=== PATIENT | female | born 1935 | race Caucasian/White ===

== ENCOUNTER 2017-07-08 13:25 | Inpatient (IN) | payer MEDICARE, OTHER ==
[2017-07-08 14:31] LABS: #Eosinphils 0.1 thou/uL (0.0-0.7); #Lymphocytes 1.1 thou/uL (1.20-3.40); #Monocytes 0.7 thou/uL (0.11-0.59); #Neutrophils 17.7 thou/uL (1.40-6.50); %Basophils 0.2 % (0.0-1.0); %Eosinophils 0.3 % (0.0-10.0); %Lymphocytes 5.7 % (21.0-51.0); %Monocytes 3.7 % (0.0-10.0); Hematocrit 39.8 % (36.0-47.0); Mean Platelet Volume 8.6 fL (7.4-10.4); Red Blood Cell (RBC) Count 3.96 mill/uL (4.20-5.40); White Blood Cell (WBC) Count 19.6 thou/uL (4.8-10.8)
[2017-07-08 14:37] LABS: PTT 30.5 SEC (22.9-36.1); Prothrombin Time 16.1 SEC (12.0-14.7)
[2017-07-08] MEDS ORDERED: Fentanyl 100 MCG/2 ML VIAL ONE (14:40)
--- NOTE | 2017-07-08 14:53 | RAD ---
LEFT HIP TWO VIEWS: HISTORY: Fall. Left hip injury. FINDINGS: A comminuted, predominantly oblique fracture of the proximal femur extends from the base of the less er trochanter to the base of the greater trochanter. There is minimal medial displacement of the di stal fragment. IMPRESSION: Comminuted intertrochanteric fracture, left hip. POS: [facility]
[2017-07-08 14:54] LABS: ALT (SGPT) 17 U/L (8-55); AST (SGOT) 19 U/L (5-34); Alkaline Phosphatase 65 U/L (40-150); Anion Gap 14 mmol/L (10-20); BUN (Urea Nitrogen) 21 mg/dL (9.8-20.1); Bilirubin, Total 0.4 mg/dL (0.2-1.2); Calc. Creatinine Clearance 0 mL/min (70-130); Calcium 9.1 mg/dL (7.8-10.44); Carbon Dioxide 24 mmol/L (23-31); Chloride 108 mmol/L (98-107); Estimated GFR-MDRD 54; Globulin 2.2 g/dL (2.4-3.5)
--- NOTE | 2017-07-08 14:59 | RAD ---
AP PELVIS ONE VIEW: HISTORY: Fall. Hip injury. FINDINGS: A comminuted intertrochanteric left hip fracture is again demonstrated. Degenerative changes of eac h hip and lumbar spine are apparent. There is articulation of each L5 transverse process with the r espective side of iliac bone. The sacral ala and pelvic rings are intact. Radiopaque sutures overl y the right lower quadrant. Calcification over the midline pelvis has the appearance of uterine fib roids. IMPRESSION: Left hip fracture. POS: [facility]
--- NOTE | 2017-07-08 15:02 | RAD ---
LEFT FEMUR TWO VIEWS: HISTORY: Fall. Left leg injury. FINDINGS: A comminuted intertrochanteric fracture of the left hip is again demonstrated. The distal femur is intact. IMPRESSION: Left hip fracture. POS: [facility]
--- NOTE | 2017-07-08 15:03 | RAD ---
CHEST ONE VIEW: HISTORY: Chest pain. COMPARISON: 02/06/2012 FINDINGS: The cardiac silhouette is magnified by projection. The pulmonary vasculature is unremarkable. The lungs remain hyperinflated. The mediastinum is midline with aortic calcification. There is no loba r consolidation or evidence of pneumothorax. Metallic clips overly the left axilla. IMPRESSION: 1. Chronic obstructive pulmonary disease. 2. Atherosclerosis. POS: [facility]
[2017-07-08 15:25] LABS: Bilirubin Negative (Negative); Blood, Urine Small (Negative); Glucose, Urine (Dipstick) Negative (Negative); Ketone, Urine Trace mg/dL (Negative); Nitrite Negative (Negative); Protein, Urine (Dipstick) Negative (Neg-Trace); Urobilinogen 0.2 mg/dL (0.2-1.0)
[2017-07-08 15:27] LABS: Bacteria/HPF None Seen HPF (None Seen); Hyaline Casts/LPF 4-6 HYALINE CAST LPF (0-3 Hyaline); Squamous Epithelial 0-3 HPF (0-3); WBC/HPF 0-3 HPF (0-3)
[2017-07-08] MEDS ORDERED: HYDROcodone/Acetaminophen 10/325 mg Tablet PO PRN ×2 (16:42)
[2017-07-08] MEDS ORDERED: Ondansetron HCl/PF 4 MG/2 ML Vial IVP PRN (16:42)
[2017-07-08] MEDS ORDERED: Dextrose 50% Abboject 50 ML SYRINGE SLOW IVP PRN (16:42)
[2017-07-08] MEDS ORDERED: Dextrose 5% in Water 1,000 ML IV PRN (16:42)
[2017-07-08] MEDS ORDERED: Ondansetron ODT 4 MG TAB PO PRN (16:42)
[2017-07-08] MEDS: MORPHINE 10 MG/ML SYRINGE IV PRN ×2 (17:10→23:28)
[2017-07-08] MEDS: Sodium Chloride 0.9% 1,000 ML IV SCH ×2 (17:16→23:28)
--- NOTE | 2017-07-08 17:49 | HP ---
DATE OF ADMISSION: 07/08/2017 REQUESTING PHYSICIAN: Reinier Mosher M.D. ATTENDING SURGEON: Wilfred Finley DO CONSULTATIONS: Orthopedics, Gerardo Metzger M.D. HISTORY OF PRESENT ILLNESS: The patient is an 81-year-old woman who at home was going to leave her house to walk her dog when she tripped at the door and landed on her left hip. The patien t had immediate pain and discomfort, called 911, and was brought to the emergency department, remberto browning, examined and noted to have a left femoral neck fracture at which time we were asked to evaluate the patient for admission and obtain a surgical consultation with Orthopedics. ALLERGIES: DARVON, TALWIN. CURRENT MEDICATIONS: Atorvastatin, Eliquis, losartan, Citracal, multivitamin, and magnesium oxide. PAST MEDICAL HISTORY: Atrial fibrillation, hypertension, and breast cancer. PAST SURGICAL HISTORY: Bilateral mastectomy, , appendectomy, and tonsillectomy. SOCIAL HISTORY: The patient currently lives at home with her . She is a former smoker, mil ter than 10 years ago. Denies alcohol or drug use. REVIEW OF SYSTEMS: A ten-point review of systems was negative, unless otherwise stated. PHYSICAL EXAMINATION: VITAL SIGNS: Blood pressure 138/71, heart rate 70, respirations 16, temperature is 97.7, oxygen sat uration is 97% on room air. GENERAL: The patient is resting comfortably in the emergency room bed. She is alert and oriented x 3. [place] Coma Scale is 15. HEENT: Head is normocephalic and atraumatic. Eyes, extraocular motions are intact. PERRLA bilater ally. Ears are atraumatic without discharge. Nose is atraumatic without discharge. Oropharynx is clear. NECK: Nontender. Trachea is midline. No JVD. CHEST: Clear to auscultation with good inspiratory and expiratory effort. HEART: Regular rate and irregularly irregular, consistent with her atrial fibrillation. ABDOMEN: Soft, flat, and nontender. Pelvis is stable. The patient has tenderness to palpation to the left hip consistent with her fracture. EXTREMITIES: Neurovascularly intact x4. BACK: By report is atraumatic and nontender. LABORATORY FINDINGS: White blood cell count 19.6, hemoglobin 13.0, hematocrit 39.8, platelets 189. Sodium 142, potassium 4.1, chloride 108, CO2 of 24, BUN 21, creatinine 0.99, glucose 99. LFTs are unremarkable. PTT 31, PT 16, INR 1.3. Urinalysis is unremarkable with the exception of some trace blood. RADIOGRAPHS: AP chest shows chronic obstructive pulmonary disease and atherosclerosis, otherwise no acute findings. Left femur shows a left hip fracture. AP pelvis shows a left hip fracture. Two v iews of the left hip show a comminuted intertrochanteric fracture of the left hip. ASSESSMENT: 1. Status post ground level fall. 2. Left femoral neck fracture. 3. Atrial fibrillation. 4. Acute pain secondary to trauma. The plan will be to admit the patient to the surgical floor. Due to her Eliquis use, she will not b e eligible for surgery today. We will hold her evening dose and her morning dose. Make her n.p.o. after midnight, pulmonary toilet, pain control, gastritis, mechanical DVT prophylaxis with a plan fo r the patient to go to the operating room in the morning. The patient was evaluated in the emergenc y department with Dr. Finley. The radiographs and laboratory findings were all discussed with Dr. Prateek barcenas and Dr. Metzger all were in agreement with this plan. They were able to answer the patient's qu estions at this time also.
[2017-07-08 18:08] VITALS: BMI 23.8
[2017-07-08] MEDS: Famotidine/PF 20 mg/2ml Vial SLOW IVP SCH (19:58)
[2017-07-08] MEDS: Famotidine 20 MG TAB PO SCH (19:58)
--- NOTE | 2017-07-08 23:56 | CON ---
DATE OF CONSULTATION: 07/08/2017. HISTORY OF PRESENT ILLNESS: Ms. Lynn is an 81-year-old female who was at home. She was planning on leaving the house to take her dog for a walk. As she turned to close the door, tripped and fell directly onto her left hip, had immediate pain in the left hip area, was unable to ambulate, was bro ught to the emergency room by ambulance and x-rays showed a comminuted intertrochanteric fracture of the left hip. The patient reports no neurologic complaints. PAST MEDICAL HISTORY/MEDICAL ILLNESSES: Atrial fibrillation, hypertension, and history of breast ca ncer. CURRENT MEDICATIONS: Include Eliquis, atorvastatin, losartan, Citracal, multivitamins, magnesium ox lucero. ALLERGIES: DARVON and TALWIN. PAST SURGICAL HISTORY: Bilateral mastectomy, , appendectomy, and tonsillectomy. SOCIAL HISTORY: The patient lives at home with her . She did smoke but greater than 10 year s ago. She does not use tobacco now at all and does not use alcohol. PHYSICAL EXAMINATION: GENERAL: The patient is a very pleasant female, alert and oriented x3, cooperative with the examina tion. VITAL SIGNS: The patient is afebrile, blood pressure 138/71, pulse 70, respiratory rate 16, O2 satu ration 97% on room air. HEENT: Unremarkable for age. Cranial nerves II through XII are grossly intact. NECK: Good range of motion without pain. Thoracic and lumbar spine are nontender to palpation. LUNGS: Clear bilaterally. HEART: Slightly irregular rate. ABDOMEN: Soft, nontender, bowel sounds positive. GENITOURINARY: Not known. EXTREMITIES: Skin over the lateral aspect of the left hip and thigh is in good condition. The louisa ent is able to flex and extend toes and the left foot has good dorsiflexion and plantar flexion of h er left ankle. Good peripheral pulses. IMAGING STUDIES: X-rays of the left hip shows a comminuted intertrochanteric fracture of the left h ip. No significant arthritic signs in the hip joint. Chest x-ray shows signs of chronic obstructiv e pulmonary disease and atherosclerosis. IMPRESSION: 1. Comminuted intertrochanteric fracture of the left hip. 2. Atrial fibrillation. 3. Chronic obstructive pulmonary disease. 4. Hypertension. PLAN: The patient will require open reduction internal fixation of the left hip. Because of her at rial fibrillation, Cardiology will be consulted. The patient's Eliquis has been stopped. We will a lso get an idea from the gas turbine powerplant mechanic helper what would be the appropriate timing to do the surgery. Jhonny washburn risks with the condition of surgery include, but are not limited to infection, bleeding, pain, damage to blood vessels or nerves, nonunion, malunion, the patient may require additional surgery, D VT, and PE formation. The patient's questions were answered. If the patient is cleared, we can do the surgery as soon as tomorrow on Monday.
[2017-07-09 04:38] LABS: #Eosinphils 0.1 thou/uL (0.0-0.7); #Lymphocytes 1.5 thou/uL (1.20-3.40); #Monocytes 0.6 thou/uL (0.11-0.59); #Neutrophils 5.5 thou/uL (1.40-6.50); %Eosinophils 0.7 % (0.0-10.0); %Lymphocytes 19.5 % (21.0-51.0); %Monocytes 8.3 % (0.0-10.0); Hematocrit 32.3 % (36.0-47.0); Mean Platelet Volume 8.5 fL (7.4-10.4); Red Blood Cell (RBC) Count 3.24 mill/uL (4.20-5.40); White Blood Cell (WBC) Count 7.7 thou/uL (4.8-10.8)
[2017-07-09 04:45] LABS: Anion Gap 9 mmol/L (10-20); BUN (Urea Nitrogen) 18 mg/dL (9.8-20.1); Calc. Creatinine Clearance 56 mL/min (70-130); Carbon Dioxide 26 mmol/L (23-31); Chloride 109 mmol/L (98-107); Estimated GFR-MDRD 71
[2017-07-09] MEDS: Famotidine/PF 20 mg/2ml Vial SLOW IVP SCH ×2 (08:58→22:00)
[2017-07-09] MEDS: MORPHINE 10 MG/ML SYRINGE IV PRN ×3 (08:58→17:28)
[2017-07-09] MEDS: Sodium Chloride 0.9% 1,000 ML IV SCH ×3 (09:48→22:00)
[2017-07-09] MEDS: Famotidine 20 MG TAB PO SCH ×2 (09:48→22:00)
[2017-07-09] MEDS ORDERED: Dronedarone HCl 400 MG TAB PO SCH (17:00)
--- NOTE | 2017-07-09 21:33 | CON ---
DATE OF CONSULTATION: 07/09/2017 HISTORY OF PRESENT ILLNESS: The patient is a pleasant 81-year-old woman with a history of paroxysmal atrial fibrillation, who presented after having a fall and needs to undergo surgery. The patient has been admitted on 2 occasions with atrial fibrillation. She was last here in April with rapid atrial fibrillation. The patient has been on chronic anticoagulation therapy and Multaq. The patient is followed primarily by Dr. Patrick. The patient states has otherwise been in very good health. She is able to walk several blocks without any chest discomfort or dyspnea. The patient denies having any PND or orthopnea. PAST MEDICAL HISTORY: 1. Atrial fibrillation. 2. Hypertension. 3. Dyslipidemia. 4. Breast carcinoma. PAST SURGICAL HISTORY: Appendectomy, mastectomies, and tonsillectomy. SOCIAL HISTORY: Nonsmoker. FAMILY HISTORY: No strong family history of heart disease. ALLERGIES: DARVON and TALWIN. MEDICATIONS: Losartan 25 b.i.d., Multaq 400 twice a day, Eliquis 50 twice a day , and Lipitor 1 tablet at bedtime. REVIEW OF SYSTEMS: Ten-point system otherwise unremarkable. No history of easy bruising or bleeding, bright red blood per rectum, hematuria. PHYSICAL EXAMINATION: GENERAL: This is a well-developed woman, in no acute distress, alert and oriented x3. VITAL SIGNS: Blood pressure 131/60. NECK: Showed no jugular venous distention, no carotid bruits. LUNGS: Clear to auscultation. HEART: Regular rate and rhythm, normal S1, S2 with a 2/6 systolic murmur. ABDOMEN: Nondistended. EXTREMITIES: Showed no edema. SKIN: Warm and dry. NEUROLOGIC: Nonfocal. VASCULAR: Radial pulses are 2+. LABORATORY DATA: White blood cell count 7.7, hemoglobin 10.5, hematocrit 32.3, platelets 156. Her INR is 1.3. Sodium is 140, potassium 4.1, chloride 109, bicarbonate 26, BUN 18, creatinine is 0.78. Her EKG revealed her to have normal sinus rhythm with occasional PVCs. IMPRESSION: 1. Hip fracture. 2. History of atrial fibrillation. 3. Hypertension. 4. Dyslipidemia. This patient presents with a hip fracture. She needs to undergo surgery. She can perform several METS without difficulty. The patient has no history of angina or congestive heart failure. An echocardiogram will be obtained to evaluate her systolic murmur. She should be at low risk for cardiac complications for surgery. We will follow this patient with you through her hospitalization. [facility]
--- NOTE | 2017-07-09 21:35 | PRG ---
DATE OF SERVICE: 07/09/2017 SUBJECTIVE: Ms. Lynn had no particular problems overnight, comes in for a diagnosis of comminuted intertrochanteric fracture of the left hip. The patient has been on Eliquis for atrial fibrillatio n. So far at this time at 1:30 in the afternoon, she has not been evaluated by Cardiology. I did t alk with Anesthesia though and they felt to be the safest for the patient we should wait at least an other day to let the Eliquis get out of her system. I discussed this with the patient and she is fi ne with that recommendation, so we will hold off on performing surgery today. We will still need Ca rdiology consult to make sure that she is safe as possible to have her hip surgery. We will try to schedule the surgery for tomorrow. This will have plenty of time for the Eliquis to get out of her system and hopefully, we will have the recommendation from Cardiology at that point.
[2017-07-09] MEDS: Losartan 25 MG TAB PO SCH (22:00)
--- NOTE | 2017-07-10 01:08 | PRG ---
DATE OF SERVICE: 07/09/2017 SUBJECTIVE: The patient is hospital day #2 status post ground level fall in which she sustained a l eft intertrochanteric fracture. She was scheduled for a cardiac clearance today. , she will undergo surgical intervention tomorrow for her hip fracture by Dr. Metzger. Overnight, the patient stated that her pain was controlled and she was tolerating a diet this morning. OBJECTIVE: VITAL SIGNS: Temperature is 98.9, heart rate 67, blood pressure 131/69, respirations 16, oxygen sat uration is 97% on room air. GENERAL: The patient is resting comfortably in the hospital bed. She is alert and oriented x3. CHEST: Clear to auscultation bilaterally. HEART: Regular rate and rhythm. ABDOMEN: Soft, flat, and nontender. EXTREMITIES: She is neurovascularly intact x4. LABORATORY FINDINGS: White blood cell count 7.7, hemoglobin 10.5, hematocrit 32.3, platelet 156. S odium 140, potassium 4.1, chloride 109, CO2 of 26, BUN 18, creatinine 0.78, glucose 105. ASSESSMENT: 1. Status post ground level fall. 2. Left intertrochanteric fracture. 3. Acute pain secondary to trauma. 4. Rate controlled atrial fibrillation. PLAN: Continue pain control, pulmonary toilet, gastritis and mechanical thrombosis prophylaxis. e evaluation and examination were done on the surgical floor with Dr. Finley.
[2017-07-10] MEDS: MORPHINE 10 MG/ML SYRINGE IV PRN ×3 (08:08→22:10)
[2017-07-10] MEDS: Famotidine/PF 20 mg/2ml Vial SLOW IVP SCH ×2 (09:00→22:12)
--- NOTE | 2017-07-10 13:26 | PRG-2 ---
DATE OF SERVICE: 07/10/2017 ATTENDING PHYSICIAN: Dr. Wilfred Finley. SUBJECTIVE: This is an 81-year-old woman status post fall where she sustained a left comminuted int ertrochanteric fracture of the hip. The patient was cleared for surgery by Dr. Medrano. She is sc heduled for surgery today. Patient is tolerating pain with current pain medication regimen. She de nies any chest pain, nausea, vomiting, diarrhea this morning. The patient is alert and awake. GCS 15. OBJECTIVE: VITAL SIGNS: Temperature 99.2 degrees Fahrenheit, pulse 85, respiratory rate 14, oxygen saturation 96% on room air, blood pressure 185/71. GENERAL: Patient is resting comfortably in hospital bed. She is alert and oriented x3, no acute di stress. CHEST: Clear to auscultation bilaterally. Equal rise and fall of chest. No apparent respiratory d istress. CARDIOVASCULAR: Regular rate and rhythm. ABDOMEN: Soft, nontender. EXTREMITIES: She is neurovascularly intact x4. LABORATORY DATA: There are no labs this morning. IMAGING: There are no images discussed this morning. ASSESSMENT: 1. Hospital day #3, status post ground level fall. 2. Left intertrochanteric fracture. 3. Acute pain secondary to trauma. 4. Rate controlled atrial fibrillation. 5. Hypertension. 6. Breast cancer. PLAN: The patient scheduled to have surgery this morning. We will continue with pain management. The patient will be placed on pharmacologic DVT prophylaxis. The patient then encouraged to use inc entive spirometer to prevent pneumonia postoperatively. The patient's pain currently controlled usi ng tramadol. Of note, the patient's blood pressure has continued to stay elevated. We will continu e to monitor this and consider changes in medication. The patient was seen and evaluated by Dr. Jersey Finley.
[2017-07-10] MEDS ORDERED: MORPHINE 10 MG/ML SYRINGE ONE (14:07)
--- NOTE | 2017-07-10 15:48 | PRG ---
DATE OF SERVICE: 07/10/2017 SUBJECTIVE: Ms. Lynn was seen and evaluated this morning. She was in her normal state of health. She had received some sedation. Her heart rate and blood pressure were stable. This afternoon wh en she was taken down for hip replacement, she was tachycardic with atrial fibrillation with rapid v entricular response. She was then transferred to telemetry monitoring. OBJECTIVE: VITAL SIGNS: Blood pressure 185/71, pulse 85, and temperature 99.2. LUNGS: Clear to auscultation. CARDIAC: Irregularly irregular. ABDOMEN: Soft, nontender, and nondistended. EXTREMITIES: No edema. IMPRESSION: 1. Atrial fibrillation with rapid ventricular response. 2. Recent hip fracture. RECOMMENDATIONS: 1. Add metoprolol 25 mg 1 p.o. b.i.d. with first dose now in anticipation for better rate control. 2. Anticipate surgery in a.m.
[2017-07-10] MEDS ORDERED: Diltiazem HCl 125 MG, Admixture Fee 1 EACH in Sodium Chloride 0.9% 100 ML IVPB SCH (16:00)
[2017-07-10] MEDS ORDERED: Metoprolol Tartrate 25 MG TAB PO SCH (16:30)
[2017-07-10] MEDS: Losartan 25 MG TAB PO SCH ×2 (16:43→22:09)
[2017-07-10] MEDS: Dronedarone HCl 400 MG TAB PO SCH ×2 (16:43→16:46)
[2017-07-10] MEDS: Famotidine 20 MG TAB PO SCH ×2 (16:43→22:10)
[2017-07-10] MEDS: Sodium Chloride 0.9% 1,000 ML IV SCH ×2 (17:49→18:17)
[2017-07-10] MEDS ORDERED: CEFAZOLIN/Water 2 GM/20 ML SYRINGE SLOW IVP SCH (18:00)
[2017-07-10] MEDS: Metoprolol Tartrate 25 MG TAB PO SCH (22:09)
[2017-07-11] MEDS: Dronedarone HCl 400 MG TAB PO SCH ×2 (05:40→18:12)
[2017-07-11] MEDS: Famotidine 20 MG TAB PO SCH ×2 (05:41→21:44)
[2017-07-11] MEDS: Metoprolol Tartrate 25 MG TAB PO SCH ×2 (05:41→21:44)
[2017-07-11] MEDS: Famotidine/PF 20 mg/2ml Vial SLOW IVP SCH ×3 (05:41→20:15)
[2017-07-11] MEDS: MORPHINE 10 MG/ML SYRINGE IV PRN ×3 (06:39→21:47)
[2017-07-11] MEDS ORDERED: Diltiazem HCl 125 MG, Admixture Fee 1 EACH in Sodium Chloride 0.9% 100 ML IVPB SCH (08:13)
[2017-07-11] MEDS: Sodium Chloride 0.9% 1,000 ML IV SCH ×2 (09:26→12:06)
[2017-07-11] MEDS: Losartan 25 MG TAB PO SCH ×2 (09:27→21:44)
--- NOTE | 2017-07-11 09:50 | PRG ---
DATE OF SERVICE: 07/11/2017 Ms. Lynn is doing very well this morning. She converted back to sinus rhythm. PHYSICAL EXAMINATION: VITAL SIGNS: Heart rate is in the 60s-70s. Blood pressure 112/53, pulse 61, temperature 98.1. LUNGS: Clear to auscultation. HEART: Regular rate and rhythm. ABDOMEN: Soft, nontender, nondistended. EXTREMITIES: No edema. IMPRESSION: Paroxysmal atrial fibrillation. RECOMMENDATIONS: 1. Continue Lopressor 25 mg 1 p.o. b.i.d. 2. Stop IV Cardizem. 3. Stop p.o. Cardizem. 4. Proceed with hip surgery. 5. Consider Multaq if continues in paroxysmal atrial fibrillation.
--- NOTE | 2017-07-11 12:45 | PRG ---
DATE OF SERVICE: 07/11/2017 SUBJECTIVE: Ms. Lynn is doing very well this morning. No acute events overnight. She converted back to sinus rhythm. No other complaints. She denies any shortness of breath or chest pain at thi s time and pain is better. PHYSICAL EXAMINATION: VITAL SIGNS: Heart rate is in the 60s to 70s, blood pressure 112/53, temperature 98.1. LUNGS: Clear to auscultation bilaterally. HEART: S1, S2, regular rate and rhythm. ABDOMEN: Soft, nontender, nondistended. EXTREMITIES: No edema. IMPRESSION: 1. Hospital day #3, status post fall. 2. Status post left femoral neck fracture. 3. Paroxysmal atrial fibrillation. PLAN: The patient will be going to the operating room today. She has been started on IV Cardizem a nd stop p.o. Cardizem. Continue Lopressor per Cardiology's recommendation. We will follow up her o n postoperative evaluation. The above patient has been seen by Dr. Finley at bedside and agreed with the above plan.
[2017-07-11] MEDS ORDERED: CEFAZOLIN/Water 2 GM/20 ML SYRINGE ONE (12:49)
[2017-07-11] MEDS ORDERED: Fentanyl 100 MCG/2 ML VIAL ONE ×2 (12:51→14:51)
[2017-07-11] MEDS ORDERED: Lidocaine 1% PF 5 ML VIAL ONE (13:25)
[2017-07-11] MEDS ORDERED: PHENYLEPHRINE-NS 100 MCG/ML 10 ML SYRINGE ONE (13:25)
[2017-07-11] MEDS ORDERED: Propofol 200 MG/20 ML VIAL ONE (13:25)
[2017-07-11] MEDS ORDERED: ePHEDrine/0.9% NaCl/PF SYRINGE 50 mg/10 ml ONE (13:25)
[2017-07-11] MEDS ORDERED: Ondansetron HCl/PF 4 MG/2 ML Vial ONE (13:25)
[2017-07-11] MEDS ORDERED: Glycopyrrolate 0.2 MG/ML 5 ML SYRINGE ONE (13:25)
[2017-07-11] MEDS ORDERED: Neomycin-Polymyxin 1 ML AMP ONE (13:45)
[2017-07-11] MEDS ORDERED: Ondansetron HCl/PF 4 MG/2 ML Vial IVP PRN (14:45)
[2017-07-11] MEDS ORDERED: Promethazine HCl 25 MG/ML VIAL SLOW IVP PRN (14:45)
[2017-07-11] MEDS ORDERED: Promethazine HCl 25 MG/ML VIAL IM PRN (14:45)
--- NOTE | 2017-07-11 17:09 | OP ---
DATE OF OPERATION: 07/11/2017 PREOPERATIVE DIAGNOSIS: Comminuted intertrochanteric fracture of the left proximal femur. POSTOPERATIVE DIAGNOSIS: Comminuted intertrochanteric fracture of the left proximal femur. PROCEDURE: Open reduction and internal fixation using trochanteric fixation nail of the comminuted intertrochanteric fracture of the left proximal femur. SURGEON: Gerardo Metzger M.D. ANESTHESIA: General. TECHNIQUE: The patient was given preoperative IV antibiotics, taken to the operating room and place d in the supine position. Satisfactory general anesthesia was performed. The patient was placed on the fracture table. All bony prominences were well padded and traction was applied to a well-padde d left foot and ankle. C-arm verified good alignment of the comminuted intertrochanteric fracture i n AP, lateral and multiple oblique views and the lateral aspect of the left hip and thigh was steril dariana prepped and draped in the usual fashion. A longitudinal incision was made approximately 4 cm in length proximal to the greater trochanter and under fluoroscopic visualization, a guide pin was daljit orlando into the greater trochanter into the proximal aspect of the femur. It was overreamed and then a [employer] trochanteric fixation nail that was 170 mm in length and 11 mm in diameter was inserted int o the proximal femur down to the appropriate depth that through a separate 4 cm incision made on the lateral aspect of the thigh. The guidepin was placed up through the femoral neck into the femoral head. Appropriate size screw was measured. The lateral cortex was overreamed and a 100 mm helical blade was inserted into the proximal aspect of the femur and into the trochanteric fixation nail. I t was then locked into place and through the same lateral incision on the thigh, a 5.0 locking screw was placed into the distal aspect of the lynnette and the femur. Again, this was all performed under fl uoroscopic visualization and showed good reduction and good fixation of the fractures. The wounds w ere then copiously irrigated with antibiotic solution and closed with a deeper layer using #1 Vicryl and the fat and subcutaneous tissue were closed with 0 Vicryl, and the skin was closed with skin st aples. Sterile dressing was applied. The patient was taken off the fracture table and transferred to recovery room in stable condition. ESTIMATED BLOOD LOSS: 100 mL COMPLICATIONS: None.
[2017-07-11] MEDS ORDERED: VITAMIN D3 PO SCH (21:00)
[2017-07-11] MEDS ORDERED: [UNRECOGNIZED DRUG - OTHER] PO SCH (21:00)
[2017-07-11] MEDS ORDERED: CALCIUM CITRATE PO SCH (21:00)
[2017-07-11] MEDS: Apixaban 5 MG TAB PO SCH (21:43)
--- NOTE | 2017-07-11 21:43 | RAD ---
TWO VIEW RIGHT HIP: 07/11/17 INDICATION: Intraoperative fixation, ORIF left hip. FINDINGS: Partially imaged, proximal left femur is demonstrated fluoroscopically during intraoperative fractur e fixation of the proximal left femur. Detail is limited. Correlate with intraoperative findings. IMPRESSION: Operative imaging for fracture fixation proximal left femur. POS: [facility]
[2017-07-12] MEDS: Sodium Chloride 0.9% 1,000 ML IV SCH ×3 (00:23→08:47)
[2017-07-12] MEDS: MORPHINE 10 MG/ML SYRINGE IV PRN ×2 (00:39→08:34)
[2017-07-12] MEDS: Apixaban 5 MG TAB PO SCH ×2 (08:31→22:40)
[2017-07-12] MEDS: Dronedarone HCl 400 MG TAB PO SCH ×2 (08:31→16:00)
[2017-07-12] MEDS: Losartan 25 MG TAB PO SCH ×2 (08:32→22:46)
[2017-07-12] MEDS: Metoprolol Tartrate 25 MG TAB PO SCH ×2 (08:32→22:44)
[2017-07-12] MEDS: Famotidine 20 MG TAB PO SCH ×2 (08:32→22:39)
[2017-07-12] MEDS: Famotidine/PF 20 mg/2ml Vial SLOW IVP SCH (08:33)
[2017-07-12] MEDS: Acetaminophen 500 MG TAB PO SCH ×3 (10:41→22:40)
--- NOTE | 2017-07-12 14:30 | PRG-2 ---
DATE OF SERVICE: 07/12/2017 ATTENDING PHYSICIAN: Dr. Wilfred Finley. SUBJECTIVE: This is an 81-year-old woman, day #1, status post open reduction and internal fixation using trochanteric fixation nail as a comminuted intertrochanteric fracture of the left proximal femur. She is doing well this morning. Her pain is adequately controlled. No significant overnight events. OBJECTIVE: VITAL SIGNS: Blood pressure 131/63, temperature 99 degrees Fahrenheit, pulse 82 , respiratory rate 18, oxygen saturation 96% on room air. HEENT: Atraumatic and normocephalic head. RESPIRATORY: Clear to auscultation bilaterally, equal rise and fall of the chest: No acute respiratory distress. CARDIOVASCULAR: Regular rate and rhythm. NEUROLOGIC: No focal deficits appreciated. Neurovascularly intact x4. LABORATORY FINDINGS: No labs or imaging to report on this morning. IMPRESSION: 1. Hospital day #4, status post fall. 2. Postop day #1, status post open reduction and internal fixation of intertrochanteric fracture of the proximal femur. 3. Paroxysmal atrial fibrillation. PLAN: The patient is postoperative day #1. She has remained in sinus rhythm. Cardiology has taken patient off the Cardizem drip and continued metoprolol. She has remained rate controlled. She is to be transferred to the surgical floor today. Referral sent to rehab and awaiting approval at this time. The patient was seen and evaluated by Dr. Wilfred Finley who was at bedside, he agrees with the above recommendations and plan. [facility]
[2017-07-12] MEDS: traMADol HCl 50 MG TAB PO PRN ×2 (17:07→22:51)
--- NOTE | 2017-07-12 17:44 | PRG ---
DATE OF SERVICE: 07/12/2017 Ms. Lynn underwent open reduction and internal fixation of comminuted intertrochanteric fracture o f the left proximal femur yesterday on 07/11/2017. The patient states that her pain is very managea ble. She has gotten up with physical therapy and has done fairly well. Her last blood pressure is 102/53 with the patient has been asymptomatic. She has not been orthosta tic when she gets up. She has not been dizzy. Her maximum temperature is 99.5. Her laboratory, hemoglobin was 10.5 and hematocrit was 32.3. The incisions over the lateral aspect of left hip and left thigh are healing well. There is no acti ve drainage and no erythema. The patient will continue with physical therapy. We will recheck her H\T\H in the morning.
--- NOTE | 2017-07-12 19:43 | PRG ---
DATE OF SERVICE: 07/12/2017 SUBJECTIVE: Ms. Lynn is doing very well. No current complaints. She underwent her hip replaceme nt without issues. OBJECTIVE: CURRENT VITAL SIGNS: Blood pressure 115/56, pulse 64, temperature 99.1. LUNGS: Clear to auscultation. HEART: Regular rate and rhythm. ABDOMEN: Soft, nontender, nondistended. EXTREMITIES: No edema. IMPRESSION: 1. Paroxysmal atrial fibrillation. RECOMMENDATIONS: 1. Continue Multaq and beta-aldair therapy. 2. Restart Eliquis. 3. This is the second time she has been seen and evaluated at [facility]. She states she lives a [place] the [place]. Her main weatherization coordinator is [facility]. At this state we are certain that this is managed give that her chronic treatment is at [facility], but her acute therapy is known at [facility]. I encouraged her to plan to follow up with us given her situation. She will think a bout her options. I also discussed importance of proceeding with ablation. This is her second epis ode in the last 6 months with paroxysmal atrial fibrillation.
[2017-07-13] MEDS ORDERED: MORPHINE 10 MG/ML SYRINGE IV PRN (01:10)
[2017-07-13] MEDS ORDERED: Ketorolac Tromethamine 30 MG/ML VIAL IVP PRN (01:10)
[2017-07-13 05:24] LABS: Hematocrit 22.8 % (36.0-47.0)
[2017-07-13] MEDS: Acetaminophen 500 MG TAB PO SCH ×4 (06:11→20:48)
[2017-07-13] MEDS ORDERED: Bisacodyl 10 MG SUPP PR PRN (08:35)
[2017-07-13] MEDS: Famotidine 20 MG TAB PO SCH ×2 (09:05→20:40)
[2017-07-13] MEDS: Dronedarone HCl 400 MG TAB PO SCH ×2 (09:05→18:34)
[2017-07-13] MEDS: Metoprolol Tartrate 25 MG TAB PO SCH ×2 (09:06→20:46)
[2017-07-13] MEDS: Losartan 25 MG TAB PO SCH ×2 (09:06→20:46)
[2017-07-13] MEDS: Ascorbic Acid 500 mg Chewable Tablet PO SCH ×2 (09:10→20:47)
[2017-07-13] MEDS: Senokot S 8.6-50 MG TAB PO SCH ×2 (09:10→20:46)
[2017-07-13] MEDS: Ferrous Sulfate 325 MG TAB PO SCH ×2 (09:11→18:34)
[2017-07-13] MEDS: Polyethylene Glycol 3350 17 GM Packet PO SCH (09:11)
--- NOTE | 2017-07-13 11:25 | PRG-2 ---
DATE OF SERVICE: 07/13/2017 ATTENDING PHYSICIAN: Reinier Mack M.D. SUBJECTIVE: This is an 81-year-old woman, day #2, status post open reduction and internal fixation using trochanteric fixation nail of a comminuted intertrochanteric fracture of the left proximal femur. She reported that she does not feel well this morning. She feels very fatigued, although her pain is adequately controlled. She does not have any significant overnight events. However, she is bothered by how tired she feels and the fact that she does not even want to get out of bed. OBJECTIVE: VITAL SIGNS: Blood pressure 104/50, pulse 70, respiratory rate 18, oxygen saturation 95% on room air, temperature 97.4 degrees Fahrenheit. HEENT: Atraumatic, normocephalic head. RESPIRATORY: Clear to auscultation bilaterally. Equal rise and fall of chest, no acute respiratory distress. CARDIOVASCULAR: Regular rate and rhythm. NEUROLOGIC: No focal deficits appreciated. Neurovascularly intact x4. LABORATORY DATA: Hemoglobin this morning was noted to be 7.4, which was down from 10.5 on 07/09/2017. Additionally, hematocrit was 22.8, which is down from 32.3 on 07/09/2017. No images to report on this morning. IMPRESSION: 1. Hospital day #5, status post fall. 2. Postoperative day 2, status post open reduction and internal fixation of intertrochanteric fracture of the proximal femur. 3. Paroxysmal atrial fibrillation, currently in sinus rhythm. PLAN: The patient is postoperative day #2. She has remained in sinus rhythm. Cardizem drip was stopped and patient is on metoprolol and Multaq per Cardiology recommendations. Eliquis was restarted for paroxysmal atrial fibrillation. The patient is to be transferred to the surgical floor today due to symptomatic anemia. Patient will be transfused 1 liter of blood. We will recheck H and H in the a.m. The patient is to continue with physical therapy as tolerated today. A referral was sent to rehab and we are awaiting approval at this time. The above plan was discussed with Dr. Mack. He agrees with the above recommendations and plan. [facility]
--- NOTE | 2017-07-13 13:49 | PQF ---
CLINICAL DOCUMENTATION IMPROVEMENT CLARIFICATION FORM: ICD-10 Updated PLEASE DO AN ADDENDUM TO THE PROGRESS NOTE WITH ANY DOCUMENTATION UPDATES OR ADDITIONS AND CARRY THROUGH TO DC SUMMARY. THANK YOU. DATE: 07/13/17 ATTN: Dr. Finley Please exercise your independent, professional judgment in responding to the clarification form. Clinical indicators are provided on the bottom of this form for your review Please check appropriate box(s): [ X] Acute blood loss anemia [ ] Post-op anemia related to acute blood loss [ ] Other diagnosis [ ] Unable to determine For continuity of documentation, please document condition throughout progress notes and discharge summary. Thank You. CLINICAL INDICATORS - SIGNS / SYMPTOMS / LABS PN 11: HEMOGLOBIN THIS MORNING 7.4, WHICH WAS DOWN FROM 10.5 ON 07/09/17. HEMATOCRIT WAS 22.8, WHICH WAS DOWN FROM 32.3 ON 07/09/17 PT IS TO BE TRANSFERRED TO THE SURGICAL FLOOR TODAY D/T SYMPTOMATIC ANEMIA. RISKS: PN 11/: FEELS VERY FATIGUED, SHE DOES NOT EVEN WANT TO GET OUT OF BED. POST-OP DAY 2, S/P ORIF OF INTERTROCHANTERIC FRACTURE OF PROXIMAL FEMUR TREATMENT: PN 11: PT WILL BE TRANSFUSED 1 LITER OF BLOOD. RECHECK H &H IN THE AM. Thank you, Juliana (This form is maintained as a part of the permanent medical record) 2015 [employer]. All Rights Reserved Juliana Madsen RN, BSN [email or web address] Office: [phone] [facility]
[2017-07-13] MEDS: traMADol HCl 50 MG TAB PO PRN ×2 (14:26→20:45)
[2017-07-13 19:01] LABS: Hematocrit 29.9 % (36.0-47.0)
[2017-07-14] MEDS: Acetaminophen 500 MG TAB PO SCH ×3 (03:38→15:34)
[2017-07-14 05:49] LABS: Hematocrit 27.4 % (36.0-47.0)
[2017-07-14] MEDS: Famotidine 20 MG TAB PO SCH (08:16)
[2017-07-14] MEDS: Senokot S 8.6-50 MG TAB PO SCH (08:16)
[2017-07-14] MEDS: Metoprolol Tartrate 25 MG TAB PO SCH (08:16)
[2017-07-14] MEDS: Ferrous Sulfate 325 MG TAB PO SCH (08:16)
[2017-07-14] MEDS: Losartan 25 MG TAB PO SCH (08:16)
[2017-07-14] MEDS: Polyethylene Glycol 3350 17 GM Packet PO SCH (08:17)
[2017-07-14] MEDS: Dronedarone HCl 400 MG TAB PO SCH (08:17)
[2017-07-14] MEDS: Ascorbic Acid 500 mg Chewable Tablet PO SCH (08:17)
[2017-07-14] MEDS ORDERED: Ibuprofen 600 MG TAB PO SCH (09:00)
--- NOTE | 2017-07-14 09:43 | PRG ---
DATE OF SERVICE: 07/14/2017 Ms. Lynn is 3 days status post ORIF of comminuted intertrochanteric fracture of the left proximal femur using a trochanteric fixation nail. The patient required a blood transfusion because of sympt omatic anemia. Her hemoglobin dropped to 7.4 and this morning her hemoglobin was 9. The patient st ates she is feeling better. She has less pain. The patient voiced the desire to go to rehab after hospitalization to continue to improve her strength and independence. VITAL SIGNS: The patient has been afebrile during the hospital course. Her last vital signs; tempe rature 98.6, pulse 59, respiratory rate 14, O2 sat 98%, blood pressure 153/78. PLAN: The patient will continue with physical therapy to gain as much strength and ability to ambul ate. She is an excellent candidate to go to rehab and a consult was put in with the rehab facility. We will continue with PT and OT here while she is here in the hospital.
[2017-07-14] MEDS: Apixaban 5 MG TAB PO SCH (10:41)
[2017-07-14] MEDS ORDERED: Magnesium Citrate 300 ML BOT PO SCH (11:15)
[2017-07-14] MEDS ORDERED: Bisacodyl 10 MG SUPP PR SCH (11:15)
[2017-07-14] MEDS: traMADol HCl 50 MG TAB PO PRN (11:41)
--- NOTE | 2017-07-14 15:48 | PRG-2 ---
DATE OF SERVICE: 07/14/2017 ATTENDING PHYSICIAN: Dr. Lambert. SUBJECTIVE: This is an 81-year-old woman day 3 status post open reduction and internal fixation using trochanteric fixation nail with a comminuted intertrochanteric fracture of the left proximal femur. She is doing well this morning. Patient states that she has a mild amount of pain and has not gotten any pain medication since yesterday night. It was encouraged that she ask her for this medication from her nurse. Otherwise, the patient is doing really well. She has been working with physical therapy and occupational therapy. She did not have any significant overnight events. She did receive a unit of blood yesterday and has been feeling much more energetic since that time. The patient was alert and awake, sitting by bedside. Her daughter was present in the room. OBJECTIVE: VITAL SIGNS: Blood pressure 129/64, pulse 61, respiratory rate 14, temperature 98.8 degrees Fahrenheit, oxygen saturation 97% on room air. GENERAL: The patient is sitting comfortably in the chair. She does not appear to be in any acute distress. HEENT: Atraumatic, normocephalic head. RESPIRATORY: Equal rise and fall of chest, no acute respiratory distress. NEUROLOGIC: No focal deficits appreciated. Neurovascularly intact x4. LABORATORY DATA: Hemoglobin this morning was 9.0, hematocrit was 27.4, this is stable from yesterday's check after transfusion. Creatinine this morning was 0.72. PLAN: The patient is postoperative day #3. She has remained in sinus rhythm. Cardiology transitioned her to p.o. metoprolol and Multaq a few days ago and she has been stable on those medications. The patient has been doing well with physical therapy and occupational therapy. She has been evaluated by inpatient rehabilitation and approved. She is yet to have a bowel movement. We did increase her bowel regimen to lactulose suppository and mag citrate. Once the patient has had a bowel movement, she can be discharged to inpatient rehabilitation. The above plan was discussed with patient and her daughter at bedside. All questions were answered. The above plan was discussed with Dr. Lambert who is in agreement with the plan. [facility]
[2017-07-14 16:23] VITALS: BP 171/76; TEMP 97.6
--- NOTE | 2017-07-14 16:31 | CON ---
INITIAL INPATIENT CONSULT NOTE DATE OF CONSULTATION: 07/13/2017 at 1500 hours. PRIMARY CARE PHYSICIAN: Dr. Gonzalez. PRIMARY MEDICAL SECRETARY RECEPTIONIST: Benjamin Ulrich. REQUESTING PHYSICIAN: Dr. Wilfred Finley. REASON FOR CONSULTATION: Medical management. HISTORY OF PRESENT ILLNESS: Ms. Lynn is a pleasant 81-year-old female who was admitted back on after tripping. When she fell, she fell onto her left hip and had immediate pain, was unable to bear weight or move without excruciating pain. She was brought to the Emergency Department and was found to have a left comminuted hip fracture. She was subsequently admitted on 07/08, Ortho was consulted 07/08. Thus, patient with paroxysmal at rial fibrillation, so Cardiology was consulted on . She has been on Multaq. Echocardiogram p er the recommendation showed an ejection fraction of 60% to 65%, mild to moderate tricuspid regurgit ation, and some diastolic dysfunction. Cardiology treated her. She converted back to normal sinus rhythm and was cleared for the operating room. She went for surgery on 07/11 for ORIF with a trochanteric fixation nail. On 07/12, her Eliquis was restarted and on 07/13, she was transferred to the floor. She remained in normal sinus rhythm since 07/10. We are consulted for medical management. The patient is being transitioned towards rehabilitation. She denies any chest pain or shortness of breath. No nausea, vomiting, diarrhea or constipation. No fevers or chills. No cough or sputum production. PAST MEDICAL HISTORY: 1. Hypertension. 2. Paroxysmal atrial fibrillation. 3. History of breast cancer. PAST SURGICAL HISTORY: 1. Bilateral mastectomy. 2. . 3. Appendectomy and tonsillectomy remotely. HOME MEDICATIONS: 1. Eliquis 5 mg p.o. b.i.d. 2. Multaq 400 mg p.o. b.i.d. 3. Atorvastatin 20 mg p.o. at bedtime. 4. Losartan 25 mg p.o. b.i.d. 5. Citracal. 6. Magnesium oxide. 7. Multivitamin. ALLERGIES: DARVON and TALWIN. SOCIAL HISTORY: Significant for she lives at home with her of many years. She did quit tob acco greater than 10 years ago. She uses no tobacco or alcohol. No history of IV drug use. FAMILY HISTORY: Negative for clotting or bleeding disorder. No venous function, no premature coron gloria disease. REVIEW OF SYSTEMS: A 10-point review of systems was performed. She does have some left hip pain, b ut otherwise denies any other complaints. Negative for all other systems. PHYSICAL EXAMINATION: VITAL SIGNS: Temperature 99.0, pulse 65, blood pressure 110/53, respiratory 18 and satting 95% on r oom air. GENERAL: She is awake. She is alert. She is oriented x3. She is a well-developed, well-nourished , elderly white female, who appears to be in no acute distress. HEENT: Normocephalic and atraumatic. Pupils are equal, round and reactive to light bilaterally. M ucous membranes are moist. She had no visible lesion. No thrush. NECK: Supple. She has no lymphadenopathy, no JVD, no thyromegaly. Normal carotid upstrokes. Ther e are no bruits. LUNGS: Clear. CARDIOVASCULAR: She is regular. She has normal S1 and S2. She has a faint holosystolic murmur bes t heard over the left lower sternal border. She has no rubs. ABDOMEN: Soft, nontender and nondistended. She has good bowel sounds present in all 4 quadrants. EXTREMITIES: No cyanosis, no clubbing. She has no edema. She has 2+ peripheral pulses. Left hip incision is clean, dry and intact. There is no straight feels of a bandage. SKIN: Otherwise warm, moist and well-perfused without any rash or lesions. No evidence of breakdow n. MUSCULOSKELETAL: Otherwise negative to inspection. She has no other joints that are inflamed or te nder with palpable joint effusions. NEUROLOGIC: Shows cranial nerves II-XII are grossly intact without any focal neurologic deficits. LABORATORY DATA: On 07/09, basic metabolic profile was normal. Creatinine 0.7. Electrolytes were normal. Calcium 8.0, glucose 105. Her admission on 07/08, liver functions were normal. She had a hemoglobin on admission of 13.0, postop 10.5, down to 7.4 today. She has been ordered to be transfu sed 2 units of blood. On 07/11, hip x-ray showed normal postoperative changes. ASSESSMENT AND PLAN: 1. Status post mechanical fall with left hip fracture. Status post open reduction and internal fix ation. 2. Paroxysmal atrial fibrillation, managed by Cardiology. She is on Eliquis and Multaq. She is ba ck in sinus rhythm. 3. Hypertension: On home medications. 4. Acute blood loss anemia: Status post transfusion. We will check a post transfusion hemoglobin and hematocrit and a repeat hemoglobin and hematocrit in the morning. 5. History of breast cancer, status post bilateral mastectomy. Thank you for this consult. I will follow with you.
--- NOTE | 2017-07-14 17:07 | PDOC.PN ---
- Subjective Encounter Start Date: 07/14/17 Encounter Start Time: 09:40 Pt feels better today except for left hip being sore. more energy, no F/C, no N /V/D/C, no chills or sweats. tolerated transfusion, H/h better today 10 point ROS performed and neg for all except as per HPI - Objective Resuscitation Status: FULL MAR Reviewed: Yes Vital Signs & Weight: Vital Signs (12 hours) Temp Pulse Resp BP Pulse Ox 07/14/17 16:23 97.6 F 56 L 12 171/76 H 97 07/14/17 12:00 98.8 F 61 14 149/64 H 97 07/14/17 08:57 98.6 F 59 L 14 153/78 H 98 07/14/17 08:00 98.6 F 59 L 14 153/78 H 98 Weight Weight 180 lb 1.6 oz I&O: 07/13/17 07/14/17 07/15/17 06:59 06:59 06:59 Intake Total 870 660 Output Total 900 350 Balance -30 310 Result Diagrams: 07/14/17 04:39 07/14/17 04:39 Radiology Reviewed by me: Yes EKG Reviewed by me: Yes Phys Exam - Physical Examination Constitutional: NAD HEENT: PERRLA, moist MMs, sclera anicteric, oral pharynx no lesions Neck: no nodes, no JVD, supple, full ROM Respiratory: no wheezing, no rales, no rhonchi, clear to auscultation bilateral Cardiovascular: RRR, no significant murmur, no rub Gastrointestinal: soft, non-tender, no distention, positive bowel sounds Musculoskeletal: no edema, pulses present Neurological: non-focal, normal sensation, moves all 4 limbs Lymphatic: no nodes Psychiatric: normal affect, A&O x 3 Skin: no rash, normal turgor, cap refill <2 seconds Dx/Plan (1) Paroxysmal A-fib Code(s): I48.0 - PAROXYSMAL ATRIAL FIBRILLATION Status: Acute Comment: in NSR. per cardiology (2) HLD (hyperlipidemia) Code(s): E78.5 - HYPERLIPIDEMIA, UNSPECIFIED Status: Chronic Qualifiers: Hyperlipidemia type: unspecified Qualified Code(s): E78.5 - Hyperlipidemia , unspecified (3) HTN (hypertension) Code(s): I10 - ESSENTIAL (PRIMARY) HYPERTENSION Status: Chronic Qualifiers: Hypertension type: essential hypertension Qualified Code(s): I10 - Essential (primary) hypertension (4) Fall on same level as cause of accidental injury Code(s): W18.30XA - FALL ON SAME LEVEL, UNSPECIFIED, INITIAL ENCOUNTER Status : Resolved Comment: tripped (5) Closed comminuted fracture of left hip Code(s): S72.092A - OTH FRACTURE OF HEAD AND NECK OF LEFT FEMUR, INIT Status: Acute Qualifiers: Encounter type: initial encounter Qualified Code(s): S72.092A - Other fracture of head and neck of left femur, initial encounter for closed fracture - Plan cont current plan of care, PT/OT, social group worker * . to rehab when trauma and ortho service ready
--- NOTE | 2017-07-14 19:40 | DIS ---
DATE OF ADMISSION: 07/08/2017 DATE OF DISCHARGE: 07/14/2017 ADMISSION DIAGNOSES: 1. Status post fall. 2. Femoral neck fracture. 3. Atrial fibrillation. 4. Acute traumatic pain. 5. Anemia. 6. Chronic anticoagulation. DISCHARGE DIAGNOSES: 1. Status post fall. 2. Femoral neck fracture. 3. Atrial fibrillation. 4. Acute traumatic pain. 5. Anemia. 6. Chronic anticoagulation. CONSULTANTS: Dr. Metzger, Orthopedic Surgery, Dr. Medrano, Cardiology. PROCEDURES: On 07/11/2017, open reduction internal fixation of left proximal femur fracture with Dr Ed Metzger, Orthopedic Surgery. HOSPITAL COURSE: Ms. Rachelle Lynn is an 81-year-old female who presented to [place] [facility] ER status post ground level fall. She was found to have the above injuries after being evaluated in the emergency room. Orthopedic Surgery was notified and Trauma Services was asked to admit. The patient underwen t operative intervention for her injuries on 07/11/2017. The patient was unable to have surgery rad ner secondary to Eliquis use. She was cleared by Cardiology for surgery prior to her operation. Po stoperatively, the patient did well. Her atrial fibrillation rate was controlled via p.o. medicatio ns. She was able to work with physical therapy. Pain was controlled via p.o. analgesics. She was tolerating p.o. diet. She was evaluated and accepted to inpatient rehabilitation. She was stable f or discharge on 07/14/2017. DISCHARGE DISPOSITION: Inpatient rehabilitation. DISCHARGE CONDITION: Good. PHYSICAL EXAMINATION: As documented in daily progress note dated 07/14/2017. DISCHARGE INSTRUCTIONS: Discharge instructions were provided to the patient in the accepting facili ty. All questions were answered prior to discharge. The patient should maintain hip precautions pe r Orthopedic Surgery recommendations. She should continue to work with physical therapy and occupat ional therapy. She should continue with a heart healthy diet and Ensure supplementation. DISCHARGE MEDICATIONS: Discharge medications were as documented in electronic medical record. A emerald escalante of which was provided to the accepting facility. FOLLOWUP APPOINTMENTS: The patient should follow up with primary care provider p.r.n. She should f ollow up with Dr. Metzger from Orthopedic Surgery once discharged from inpatient rehabilitation. akash may call his office for an appointment. She should follow up with her program therapist or [facility] program therapist for her atrial fibrillation once discharged from inpatient rehabilitation. She does no t need to follow up with Trauma Services or Dr. Finley formally, but may call our office if there are any questions. This is merely a summary of the patient's hospitalization, for more in depth inform ation, please see her medical record in its entirety.
--- NOTE | 2017-07-19 21:43 | EKG ---
Test Reason : ELEVATED HR Blood Pressure : / mmHG Vent. Rate : 156 BPM Atrial Rate : 153 BPM P-R Int : 000 ms QRS Dur : 070 ms QT Int : 294 ms P-R-T Axes : 000 039 -33 degrees QTc Int : 473 ms Atrial fibrillation with rapid ventricular response Minimal voltage criteria for LVH, may be normal variant Marked ST abnormality, possible anterior subendocardial injury Abnormal ECG When compared with ECG of 09-JUL-2017 11:56, (Unconfirmed) Atrial fibrillation has replaced Sinus rhythm Vent. rate has increased BY [address] now depressed in Inferior leads ST now depressed in Anterolateral leads Confirmed by CIERRA SRINIVASAN (2) on 07/19/2017 9:42:58 PM Referred By: ASHKAN Confirmed By:CIERRA SRINIVASAN
--- NOTE | 2017-08-25 09:55 | EKG ---
Test Reason : Blood Pressure : / mmHG Vent. Rate : 071 BPM Atrial Rate : 071 BPM P-R Int : 152 ms QRS Dur : 088 ms QT Int : 412 ms P-R-T Axes : 058 057 071 degrees QTc Int : 447 ms Sinus rhythm with occasional Premature ventricular complexes Otherwise normal ECG When compared with ECG of 21-NOV-2016 04:13, Sinus rhythm has replaced Atrial fibrillation Vent. rate has decreased BY [address] Pita COLVIN ([id number]) on 08/25/2017 9:55:03 AM Referred By: KEVEN Confirmed By:DR. Pita COLVIN
--- NOTE | 2017-08-28 13:22 | EKG ---
Test Reason : Blood Pressure : / mmHG Vent. Rate : 065 BPM Atrial Rate : 065 BPM P-R Int : 164 ms QRS Dur : 088 ms QT Int : 434 ms P-R-T Axes : 063 047 057 degrees QTc Int : 451 ms Normal sinus rhythm Voltage criteria for left ventricular hypertrophy No STEMI Abnormal ECG Confirmed by NICHO COOLEY, NATALIIA (12), newspaper managing editor TOI VALERO ([id number]) on 08/28/2017 1:21:47 PM Referred By: KRISTINE Confirmed By:NATALIIA TORRE MD
== END 2017-07-14 18:51 | DRG 481 ==
LOC: ERS 13:25 → SJJU 16:39 → 2NO 07-10 14:41 → SURG B 07-13 10:57
PROVIDERS: ADMIT Surgery; ATTEND Surgery
PROC: 0QS734Z Reposition Left Upper Femur with Internal Fixation Device, Percutaneous Approach (ICD-10-PCS; principal; 2017-07-11)
PROC: 30233N1 Transfusion of Nonautologous Red Blood Cells into Peripheral Vein, Percutaneous Approach (ICD-10-PCS; 2017-07-13)
DX: S72.142A Displaced intertrochanteric fracture of left femur, initial encounter for closed fracture (principal); D62 Acute posthemorrhagic anemia; I48.0 Paroxysmal atrial fibrillation; I10 Essential (primary) hypertension; W01.0XXA Fall on same level from slipping, tripping and stumbling without subsequent striking against object, initial encounter; Z79.02 Long term (current) use of antithrombotics/antiplatelets; G89.11 Acute pain due to trauma; Z87.891 Personal history of nicotine dependence; Z85.3 Personal history of malignant neoplasm of breast; E78.5 Hyperlipidemia, unspecified
CPT/HCPCS: 36415; 36416; 36430; 51702; 71010; 72170; 76000; 80048; 80053; 81003; 81015; 82565; 85014; 85018; 85025; 85049; 85610; 85730; 86850; 86900; 86901; 93005; 93010; 93306; 96374; 96375; C1713; G0390; G8978-GP-CL; G8979-GP-CJ; G8987-GO-CL; G8988-GO-CJ; J2001; J2270; J2405; J2704; J3010; J7050; P9016; Q0162; S0028

== ENCOUNTER 2017-07-16 09:08 | Inpatient (IN) | payer MEDICARE, OTHER ==
[2017-07-16] MEDS ORDERED: Magnesium Sulfate 2 GM/100 ML BAG ONE (09:24)
[2017-07-16] MEDS ORDERED: Digoxin 0.5 MG/2 ML AMP ONE (09:24)
[2017-07-16 09:46] LABS: #Eosinphils 0.1 thou/uL (0.0-0.7); #Lymphocytes 0.8 thou/uL (1.20-3.40); #Monocytes 0.6 thou/uL (0.11-0.59); %Basophils 0.1 % (0.0-1.0); %Eosinophils 0.6 % (0.0-10.0); %Lymphocytes 8.4 % (21.0-51.0); %Monocytes 6.5 % (0.0-10.0); Hematocrit 28.9 % (36.0-47.0); Mean Platelet Volume 8.6 fL (7.4-10.4); White Blood Cell (WBC) Count 9.5 thou/uL (4.8-10.8)
[2017-07-16 09:54] LABS: PTT 37.1 SEC (22.9-36.1); Prothrombin Time 17.8 SEC (12.0-14.7)
[2017-07-16] MEDS ORDERED: Metoprolol Tartrate 5 MG/5 ML VIAL ONE ×2 (10:05→11:43)
[2017-07-16 10:10] LABS: ALT (SGPT) 27 U/L (8-55); AST (SGOT) 20 U/L (5-34); Alkaline Phosphatase 93 U/L (40-150); Anion Gap 13 mmol/L (10-20); BUN (Urea Nitrogen) 17 mg/dL (9.8-20.1); Bilirubin, Total 0.9 mg/dL (0.2-1.2); CK (CPK) 51 U/L (29-168); Calc. Creatinine Clearance 0 mL/min (70-130); Calcium 8.3 mg/dL (7.8-10.44); Carbon Dioxide 25 mmol/L (23-31); Chloride 107 mmol/L (98-107); Estimated GFR-MDRD 77; Globulin 2.1 g/dL (2.4-3.5); Lipase 12 U/L (8-78); Protein, Total 4.7 g/dL (6.0-8.3)
[2017-07-16 10:12] LABS: Troponin I 0.024 ng/mL (< 0.028)
[2017-07-16 10:26] LABS: Bilirubin Negative (Negative); Blood, Urine Large (Negative); Glucose, Urine (Dipstick) Negative (Negative); Ketone, Urine Negative (Negative); Nitrite Positive (Negative); Protein, Urine (Dipstick) 30 mg/dL (Neg-Trace); Urobilinogen 0.2 mg/dL (0.2-1.0)
[2017-07-16 10:29] LABS: Bacteria/HPF 4+ HPF (None Seen); Hyaline Casts/LPF 0-3 HYALINE CAST LPF (0-3 Hyaline); Squamous Epithelial 0-3 HPF (0-3)
--- NOTE | 2017-07-16 10:30 | RAD ---
SINGLE VIEW OF THE CHEST: COMPARISON: 07/08/17. HISTORY: Rapid heart rate and atrial fibrillation. FINDINGS: Single view of the chest shows a normal sized cardiomediastinal silhouette. There is no evidence of consolidation, mass, or pleural effusion. The bones are unremarkable. IMPRESSION: No evidence of acute cardiopulmonary disease. POS: [facility]
[2017-07-16 10:40] LABS: Yeast-All Forms None Seen HPF (None Seen)
[2017-07-16] MEDS ORDERED: traMADol HCl 50 MG TAB ONE (11:02)
[2017-07-16] MEDS ORDERED: Fentanyl 100 MCG/2 ML VIAL ONE (11:50)
[2017-07-16] MEDS ORDERED: Ketorolac Tromethamine 30 MG/ML VIAL ONE (11:50)
[2017-07-16] MEDS ORDERED: Acetaminophen 325 MG TAB PO PRN (13:18)
[2017-07-16] MEDS ORDERED: Guaifenesin DM 100-10/5 ML UDCUP PO PRN (13:18)
[2017-07-16] MEDS: Furosemide 40 MG/4 ML VIAL SLOW IVP SCH (14:19)
[2017-07-16] MEDS: Ibuprofen 600 MG TAB PO SCH ×2 (14:19→21:02)
--- NOTE | 2017-07-16 14:22 | HP ---
REASON FOR ADMISSION: Atrial fibrillation with rapid ventricular rate. HISTORY OF PRESENT ILLNESS: The patient was recently discharged to inpatient rehab after having left hip ORIF. She was found to have had heart rates of up to 140 in the rehabilitation unit. This was confirmed with the EKG and patient was transferred to the emergency room here. The patient has history of chronic atrial fibrillation. Here in the ER, she was given a dose of digoxin 0.5 mg IV push, as her systolic blood pressures were in the 100 range. She was given a fluid bolus half a liter with systolic blood pressure coming up to 120. She was given 5 mg of IV push, Lopressor x2 doses, which has brought her atrial fibrillation with RVR to 88 beats per minute. Currently, she has no complaints of chest pain or palpitation. No complaints of shortness of breath. Patient states she has been able to get up, stand, and pivot to her rolling walker. She has not actually walked since having her left hip surgery. The patient was discharged on the to inpatient rehabilitation. She has had open reduction and internal fixation using trochanteric fixation nail for comminuted intertrochanteric fracture of left proximal femur on 07/11/[address] Metzger. No complaints of fever. PAST MEDICAL/SURGICAL HISTORY: Left hip ORIF done on the , chronic atrial fibrillation, hypertension, dyslipidemia, history of breast cancer with mastectomies, , tonsillectomy, appendectomy. PERSONAL HISTORY: Does not abuse alcohol or drugs. Quit smoking more than 10 years ago. FAMILY HISTORY: No history of premature heart disease in the family. Both parents of some type of cancer, which she does not recollect, son of complications from leukemia. CURRENT MEDICATIONS: Eliquis 5 mg p.o. twice daily, vitamin C 500 mg p.o. twice daily, Multaq 400 mg p.o. twice daily, Pepcid 20 mg p.o. twice daily, ferrous sulfate 325 mg p.o. twice daily, Motrin 600 mg p.o. three times daily p.r.n., losartan 25 mg p.o. twice daily, Lopressor 25 mg p.o. twice daily, MiraLax 17 grams daily, Ultram p.r.n. for pain. ALLERGIES: PENTAZOCINE, PROPOXYPHENE. REVIEW OF SYSTEMS: The following complete review of systems was negative, unless otherwise mentioned in the HPI or below: Constitutional: Weight loss or gain, ability to conduct usual activities. Skin: Rash, itching. Eyes: Double vision, pain. ENT/Mouth: Nose bleeding, neck stiffness, pain, tenderness. Cardiovascular: Palpitations, dyspnea on exertion, orthopnea. Respiratory: Shortness of breath, wheezing, cough, hemoptysis, fever or night sweats. Gastrointestinal: Poor appetite, abdominal pain, heartburn, nausea, vomiting, constipation, or diarrhea. Genitourinary: Urgency, frequency, dysuria, nocturia. Musculoskeletal: Pain, swelling. Neurologic/Psychiatric: Anxiety, depression. Allergy/Immunologic: Skin rash, bleeding tendency. PHYSICAL EXAMINATION: GENERAL: Patient is an 81-year-old female, who is currently not in any acute distress. VITAL SIGNS: Blood pressure 126/74, pulse 90 per minute, respiratory rate 18 per minute, temperature 99.1 degrees Fahrenheit, saturating 94% on room air. NECK: Supple, no elevated JVD. HEENT: Extraocular muscles intact. Pupils reacting to light. Oral cavity, mucous membranes are dry. No exudates or congestion. CARDIOVASCULAR SYSTEM: S1, S2 heard. Irregular rhythm. RESPIRATORY SYSTEM: Air entry 1+ bilateral, basal rales plus. No wheezes. ABDOMEN: Soft. Bowel sounds heard. No tenderness, rigidity, or guarding. EXTREMITIES: Left thigh is edematous postop and is postop. There is also a mild edema in the right thigh. VASCULAR: Peripheral pulses are 1+ bilateral. No ischemic ulcerations or gangrene. CENTRAL NERVOUS SYSTEM: No gross focal deficits seen. Patient is alert, awake , oriented well. PSYCHIATRIC SYSTEM: The patient's mood is euthymic. No hallucinations or delusions. LABORATORY AND X-RAY FINDINGS: Chest x-ray done shows no acute infiltrate. UA shows positive nitrite, large leukocyte esterase, 4+ bacteria, and greater than 50 wbcs. TSH 1.20. BNP is 881. First set of cardiac enzymes are negative. Albumin is 2.6, BUN 17, creatinine 0.7. PT/INR 17 and 1.4 and PTT 37. White count of 9, H and H 9 and 28, platelet count is 267, and MCV is 99 with 84% neutrophils. EKG done shows atrial fibrillation with RVR at 135 beats per minute. CLINICAL IMPRESSION AND PLAN: The patient will be admitted to telemetry for atrial fibrillation with rapid ventricular response with known history of chronic atrial fibrillation. The patient also has very low albumin with recent surgery and poor functional status with edema. She will be given Lasix 40 mg IV q.12 hourly for a total of 4 doses. We will continue her Multaq, Eliquis, Lopressor, Cozaar, and Ultram as before. She will be on Macrobid 100 mg twice daily until her urine cultures come back. We will request Cardiology consultation. A recent echocardiogram done on the of this month shows EF of 60%-65% with normal LV function. She had known aortic stenosis, but the valves could not be clearly visualized on the echo. We will continue to closely monitor her on telemetry. The patient and family here are requesting that rehabilitation is a little too much for her and she would like to go to [facility] where her went post coronary artery bypass graft. In view of this, case management consultation will be requested. She will be on Ensure 1 can 3 times daily for her low proteins and we will encourage her to eat high-protein diet during her stay here. She will be on Colace and MiraLax for her bowels due to poor functional status at present. PT/OT evaluations will be requested as well. The patient's H and H has remained stable. Please note patient received 2 units of packed cells during her recent hospitalization with hemoglobin of around 7; her baseline has been 13. Her hemoglobin has remained above 8, currently 9. We will keep a close eye on this, as patient is on Eliquis with recent surgery. MTDD
[2017-07-16] MEDS: Dronedarone HCl 400 MG TAB PO SCH (17:58)
[2017-07-16] MEDS: Ferrous Sulfate 325 MG TAB PO SCH (17:58)
[2017-07-16] MEDS: traMADol HCl 50 MG TAB PO PRN (18:07)
[2017-07-16] MEDS ORDERED: Metoprolol Tartrate 25 MG TAB PO SCH (21:00)
[2017-07-16] MEDS ORDERED: Losartan Potassium 25 MG TAB PO SCH (21:00)
[2017-07-16] MEDS: Docusate 100 MG CAP PO SCH (21:02)
[2017-07-16] MEDS: Calcium Carbonate + Vit D 1 TAB PO SCH (21:02)
[2017-07-16] MEDS: Ascorbic Acid 500 mg Chewable Tablet PO SCH (21:02)
[2017-07-16] MEDS: Nitrofurantoin Monohyd/M-Cryst 100 MG CAP PO SCH (21:02)
[2017-07-16] MEDS: Famotidine 20 MG TAB PO SCH (21:02)
[2017-07-16] MEDS: Apixaban 5 MG TAB PO SCH (21:02)
[2017-07-17 05:11] LABS: #Eosinphils 0.2 thou/uL (0.0-0.7); #Lymphocytes 0.9 thou/uL (1.20-3.40); #Monocytes 0.6 thou/uL (0.11-0.59); #Neutrophils 5.7 thou/uL (1.40-6.50); %Basophils 0.2 % (0.0-1.0); %Eosinophils 2.8 % (0.0-10.0); %Lymphocytes 12.1 % (21.0-51.0); %Monocytes 7.9 % (0.0-10.0); Hematocrit 28.3 % (36.0-47.0); Mean Platelet Volume 8.2 fL (7.4-10.4); Red Blood Cell (RBC) Count 2.85 mill/uL (4.20-5.40); White Blood Cell (WBC) Count 7.4 thou/uL (4.8-10.8)
[2017-07-17 05:30] LABS: Anion Gap 11 mmol/L (10-20); BUN (Urea Nitrogen) 16 mg/dL (9.8-20.1); Calc. Creatinine Clearance 68 mL/min (70-130); Carbon Dioxide 30 mmol/L (23-31); Chloride 105 mmol/L (98-107); Estimated GFR-MDRD 79
[2017-07-17] MEDS: Furosemide 40 MG/4 ML VIAL SLOW IVP SCH (05:34)
[2017-07-17] MEDS: Ibuprofen 600 MG TAB PO SCH ×3 (05:34→21:02)
[2017-07-17] MEDS: Ondansetron HCl/PF 4 MG/2 ML Vial IVP PRN ×2 (08:35→16:32)
[2017-07-17] MEDS: Apixaban 5 MG TAB PO SCH ×2 (08:39→21:02)
[2017-07-17] MEDS: Metoprolol Tartrate 25 MG TAB PO SCH ×2 (08:39→21:02)
[2017-07-17] MEDS: Dronedarone HCl 400 MG TAB PO SCH ×2 (08:39→16:32)
[2017-07-17] MEDS: traMADol HCl 50 MG TAB PO PRN ×2 (08:39→14:37)
[2017-07-17] MEDS: Ascorbic Acid 500 mg Chewable Tablet PO SCH ×2 (08:39→21:02)
[2017-07-17] MEDS: Polyethylene Glycol 3350 17 GM Packet PO SCH (08:39)
[2017-07-17] MEDS: Calcium Carbonate + Vit D 1 TAB PO SCH ×2 (08:40→21:02)
[2017-07-17] MEDS: Docusate 100 MG CAP PO SCH ×2 (08:40→21:02)
[2017-07-17] MEDS: Nitrofurantoin Monohyd/M-Cryst 100 MG CAP PO SCH ×2 (08:40→21:02)
[2017-07-17] MEDS: Ferrous Sulfate 325 MG TAB PO SCH ×2 (08:40→16:32)
[2017-07-17] MEDS: Famotidine 20 MG TAB PO SCH ×2 (08:40→21:02)
--- NOTE | 2017-07-17 10:27 | PDOC.PN ---
- Subjective Encounter Start Date: 07/17/17 Encounter Start Time: 08:00 Subjective: no sob or palpitations -: feels better - Objective MAR Reviewed: Yes Vital Signs & Weight: Vital Signs (12 hours) Temp Pulse Resp BP Pulse Ox 07/17/17 08:20 97.9 F 69 16 179/73 H 96 07/17/17 04:00 97.9 F 64 16 188/77 H 96 Weight Weight 158 lb 6.4 oz I&O: 07/16/17 07/17/17 07/18/17 06:59 06:59 06:59 Intake Total 600 Balance 600 Result Diagrams: 07/17/17 04:43 07/17/17 04:43 Phys Exam - Physical Examination HEENT: PERRLA, moist MMs Neck: no JVD, supple Respiratory: no wheezing, no rales Cardiovascular: RRR, no significant murmur Gastrointestinal: soft, non-tender, positive bowel sounds Musculoskeletal: pulses present, edema present Neurological: non-focal, moves all 4 limbs Psychiatric: A&O x 3 Dx/Plan (1) Atrial fibrillation Code(s): I48.91 - UNSPECIFIED ATRIAL FIBRILLATION Status: Acute Qualifiers: Atrial fibrillation type: paroxysmal Qualified Code(s): I48.0 - Paroxysmal atrial fibrillation (2) Closed comminuted fracture of left hip Code(s): S72.092A - OTH FRACTURE OF HEAD AND NECK OF LEFT FEMUR, INIT Status: Acute Qualifiers: Encounter type: subsequent encounter Comment: had orif on 07/11/2017 (3) HLD (hyperlipidemia) Code(s): E78.5 - HYPERLIPIDEMIA, UNSPECIFIED Status: Chronic Qualifiers: Hyperlipidemia type: unspecified (4) HTN (hypertension) Code(s): I10 - ESSENTIAL (PRIMARY) HYPERTENSION Status: Chronic Qualifiers: Hypertension type: essential hypertension - Plan afib is rate controlled and mostly in sinus -: is on multaq and eliquis -: watch for h/h, may switch lasix to po from am -: PT to mobilize per ortho advice, high protein diet -: CM for help with swing bed * . Review of Systems - Medications/Allergies Allergies/Adverse Reactions: Allergies Allergy/AdvReac Type Severity Reaction Status Date / Time pentazocine [From Talwin] Allergy Verified 07/16/17 14:04 propoxyphene [From Darvon] Allergy Verified 07/16/17 14:04 Medications: Current Medications Acetaminophen (Tylenol) 650 mg PO Q4H PRN PRN Reason: Headache/Fever or Pain Apixaban (Eliquis) 5 mg PO BID [facility] Last Admin: 07/17/17 08:39 Dose: 5 mg Ascorbic Acid (Vitamin C) 500 mg PO BID [facility] Last Admin: 07/17/17 08:39 Dose: 500 mg Calcium/Vitamin D (Caltrate 600 + Vit D) 1 tab PO BID [facility] Last Admin: 07/17/17 08:40 Dose: 1 tab Docusate Sodium (Colace) 100 mg PO BID [facility] Last Admin: 07/17/17 08:40 Dose: 100 [facility] Admin: 07/17/17 08:39 Dose: 400 mg Famotidine (Pepcid) 20 mg PO BID [facility] Last Admin: 07/17/17 08:40 Dose: 20 mg Ferrous [facility] Last Admin: 07/17/17 08:40 Dose: 325 mg Furosemide (Lasix) 40 mg SLOW IVP DAILY [facility] Guaifenesin/Dextromethorphan (Robitussin Dm) 15 ml PO Q4H PRN PRN Reason: Cough Ibuprofen (Motrin) 600 mg PO Q8HR [facility] Last Admin: 07/17/17 05:34 Dose: 600 mg Metoprolol Tartrate (Lopressor) 25 mg PO BID [facility] Last Admin: 07/17/17 08:39 Dose: 25 mg Nitrofurantoin Macrocrystals (Macrobid) 100 mg PO BID [facility] Last Admin: 07/17/17 08:40 Dose: 100 mg Ondansetron HCl (Zofran) 4 mg IVP Q6H PRN PRN Reason: Nausea/Vomiting Last Admin: 07/17/17 08:35 Dose: 4 mg Polyethylene Glycol (Miralax) 17 gm PO DAILY [facility] Last Admin: 07/17/17 08:39 Dose: 17 gm Potassium Chloride (K-Dur) 40 meq PO ONE [facility] Tramadol HCl (Ultram) 50 mg PO Q6H PRN PRN Reason: Moderate Pain (4-6) Last Admin: 07/17/17 08:39 Dose: 50 mg
[2017-07-17] MEDS ORDERED: Potassium Chloride 20 MEQ TAB PO SCH (10:30)
--- NOTE | 2017-07-17 13:27 | CON ---
DATE OF CONSULTATION: 07/17/2017 REQUESTING PHYSICIAN: Dr. Miles REASON FOR CONSULTATION: Atrial fibrillation. HISTORY OF PRESENT ILLNESS: This is an 81-year-old woman with a history of atrial fibrillation whic h has been paroxysmal. She is followed by physicians in [facility]. She has been t reated with antiarrhythmic medical therapy in the past. She has tried different medications, but severo olivo is now placed on Multaq, which she generally tolerates fairly well. She recently had a hip ORIF procedure and was discharged to an inpatient rehab. She was found to have an elevated heart r ate in the 140 beats per minute range and was sent back to the emergency room. She was found to hav e atrial fibrillation with rapid ventricular rate and was treated with Lopressor. She is currently in normal sinus rhythm. She has no other specific complaints. PAST MEDICAL HISTORY: Left hip ORIF, atrial fibrillation which is paroxysmal, hypertension, dyslipi demia, breast cancer with mastectomy, , tonsillectomy, appendectomy. SOCIAL HISTORY: Does not use alcohol or drugs. Quit smoking 10 years ago. FAMILY HISTORY: No history of heart disease in the family. CURRENT MEDICATIONS: Include Eliquis, vitamins, Multaq, Pepcid, ferrous sulfate, Motrin, losartan, Lopressor, MiraLax and Ultram. ALLERGIES: PROPOXYPHENE and PENTAZACINE. REVIEW OF SYSTEMS: Otherwise unremarkable, particularly no change in hearing, taste, vision, smell, abdominal discomfort, chest discomfort. Blood in the urine, blood in the stool, lightheadedness, a taxia, depression or anxiety. PHYSICAL EXAMINATION: GENERAL: She is comfortable in no acute distress. VITAL SIGNS: Blood pressure is 136/63, heart rate is 69 and regular. NECK: Reveals no increased JVD. HEART: Regular rate. Normal S1, S2. She has a loud systolic murmur. LUNGS: Clear to auscultation bilaterally. ABDOMEN: Soft, nontender. EXTREMITIES: Show no clubbing, cyanosis, but she does have some trace edema. A 12-lead ECG done on 07/16/2017 shows atrial fibrillation with rapid ventricular rate and some nons pecific ST and T-wave abnormalities. Today, she is in normal sinus rhythm. IMPRESSION: Paroxysmal atrial fibrillation. RECOMMENDATIONS: Ms. Lynn has a history of paroxysmal atrial fibrillation and is managed on Multa q. She does occasionally have breakthrough episodes on Multaq as she did. It is hard to know [facility] this may be related to her recent procedure. For now I think it is reasonable to continue with er current therapy and not make any adjustments to her therapy and have her follow up with her outpa tient physician. If she does begin to have more episodes, then consideration of changing her antiar rhythmic drugs should be taken potentially to sotalol 80 mg twice daily if her kidney function is no rmal. She may also be a candidate for radiofrequency ablation in the future once she has recovered from this. She will follow up with her regular box spinner in the future. We are more than happy to see her should the need arise.
[2017-07-17 15:48] LABS: Hematocrit 31.6 % (36.0-47.0)
[2017-07-18 05:12] LABS: #Eosinphils 0.4 thou/uL (0.0-0.7); #Lymphocytes 1.3 thou/uL (1.20-3.40); #Monocytes 0.8 thou/uL (0.11-0.59); #Neutrophils 4.9 thou/uL (1.40-6.50); %Basophils 0.3 % (0.0-1.0); %Eosinophils 5.2 % (0.0-10.0); %Lymphocytes 17.3 % (21.0-51.0); %Monocytes 11.1 % (0.0-10.0); Hematocrit 31.6 % (36.0-47.0); Mean Platelet Volume 8.4 fL (7.4-10.4); Red Blood Cell (RBC) Count 3.13 mill/uL (4.20-5.40); White Blood Cell (WBC) Count 7.4 thou/uL (4.8-10.8)
[2017-07-18] MEDS: Ibuprofen 600 MG TAB PO SCH ×4 (05:30→21:00)
[2017-07-18] MEDS: hydrALAZINE 20 MG/ML VIAL SLOW IVP PRN (05:31)
[2017-07-18 05:32] LABS: Anion Gap 13 mmol/L (10-20); BUN (Urea Nitrogen) 27 mg/dL (9.8-20.1); Calc. Creatinine Clearance 56 mL/min (70-130); Calcium 8.8 mg/dL (7.8-10.44); Carbon Dioxide 32 mmol/L (23-31); Chloride 101 mmol/L (98-107); Estimated GFR-MDRD 63
[2017-07-18] MEDS: traMADol HCl 50 MG TAB PO PRN ×3 (06:22→16:29)
[2017-07-18] MEDS: Dronedarone HCl 400 MG TAB PO SCH ×2 (08:26→16:30)
[2017-07-18] MEDS: Ascorbic Acid 500 mg Chewable Tablet PO SCH ×2 (08:29→20:58)
[2017-07-18] MEDS: Apixaban 5 MG TAB PO SCH ×2 (08:29→20:58)
[2017-07-18] MEDS: Docusate 100 MG CAP PO SCH ×2 (08:30→20:58)
[2017-07-18] MEDS: Calcium Carbonate + Vit D 1 TAB PO SCH ×2 (08:30→20:58)
[2017-07-18] MEDS: Ferrous Sulfate 325 MG TAB PO SCH ×2 (08:30→16:30)
[2017-07-18] MEDS: Nitrofurantoin Monohyd/M-Cryst 100 MG CAP PO SCH ×2 (08:30→20:58)
[2017-07-18] MEDS: Famotidine 20 MG TAB PO SCH ×2 (08:30→20:58)
[2017-07-18] MEDS: Polyethylene Glycol 3350 17 GM Packet PO SCH (08:31)
[2017-07-18] MEDS: Metoprolol Tartrate 25 MG TAB PO SCH ×2 (08:31→20:58)
[2017-07-18] MEDS: Furosemide 40 MG/4 ML VIAL SLOW IVP SCH (08:31)
--- NOTE | 2017-07-18 09:07 | PDOC.PN ---
- Subjective Encounter Start Date: 07/18/17 Encounter Start Time: 09:06 Subjective: pain improved, no chest pain or sob - Objective MAR Reviewed: Yes Vital Signs & Weight: Vital Signs (12 hours) Temp Pulse Resp BP Pulse Ox 07/18/17 05:31 61 07/18/17 04:00 97.7 F 61 18 182/83 H 97 Weight Weight 156 lb 11.2 oz I&O: 07/17/17 07/18/17 07/19/17 06:59 06:59 06:59 Intake Total 600 1197 Balance 600 1197 Result Diagrams: 07/18/17 04:22 07/18/17 04:22 Phys Exam - Physical Examination Constitutional: NAD Neck: no JVD Respiratory: clear to auscultation bilateral Cardiovascular: RRR 3/6 sys murmur Gastrointestinal: soft, no distention, positive bowel sounds Musculoskeletal: no edema Dx/Plan (1) UTI (urinary tract infection), bacterial Code(s): N39.0 - URINARY TRACT INFECTION, SITE NOT SPECIFIED; A49.9 - BACTERIAL INFECTION, UNSPECIFIED Status: Acute (2) Atrial fibrillation Code(s): I48.91 - UNSPECIFIED ATRIAL FIBRILLATION Status: Acute Qualifiers: Atrial fibrillation type: paroxysmal Qualified Code(s): I48.0 - Paroxysmal atrial fibrillation (3) Closed comminuted fracture of left hip Code(s): S72.092A - OTH FRACTURE OF HEAD AND NECK OF LEFT FEMUR, INIT Status: Acute Qualifiers: Encounter type: subsequent encounter Comment: had orif on 07/11/2017 (4) Paroxysmal A-fib Code(s): I48.0 - PAROXYSMAL ATRIAL FIBRILLATION Status: Acute Comment: in NSR. per cardiology (5) HLD (hyperlipidemia) Code(s): E78.5 - HYPERLIPIDEMIA, UNSPECIFIED Status: Chronic Qualifiers: Hyperlipidemia type: unspecified (6) HTN (hypertension) Code(s): I10 - ESSENTIAL (PRIMARY) HYPERTENSION Status: Chronic Qualifiers: Hypertension type: essential hypertension - Plan cont multaqfrances -: cont po antibx for e coli uti -: cont PT/OT -: DC planning in progress * .
[2017-07-18] MEDS: Ondansetron HCl/PF 4 MG/2 ML Vial IVP PRN (11:33)
[2017-07-19] MEDS: Ibuprofen 600 MG TAB PO SCH ×2 (05:04→14:36)
[2017-07-19] MEDS: hydrALAZINE 20 MG/ML VIAL SLOW IVP PRN (05:04)
[2017-07-19 05:56] VITALS: BMI 25.0
--- NOTE | 2017-07-19 08:37 | PDOC.PN ---
- Subjective Encounter Start Date: 07/19/17 Encounter Start Time: 08:32 Subjective: no chest pain, sob - Objective MAR Reviewed: Yes Vital Signs & Weight: Vital Signs (12 hours) Temp Pulse Resp BP Pulse Ox 07/19/17 05:04 59 L 07/19/17 04:00 98.0 F 59 L 18 192/79 H 97 Weight Weight 155 lb 3.2 oz I&O: 07/18/17 07/19/17 07/20/17 06:59 06:59 06:59 Intake Total 1197 480 Balance 1197 480 Result Diagrams: 07/18/17 04:22 07/18/17 04:22 Phys Exam - Physical Examination Constitutional: NAD Neck: no JVD Respiratory: clear to auscultation bilateral Cardiovascular: RRR, no significant murmur Gastrointestinal: soft, non-tender, positive bowel sounds Musculoskeletal: no edema, pulses present Dx/Plan (1) UTI (urinary tract infection), bacterial Code(s): N39.0 - URINARY TRACT INFECTION, SITE NOT SPECIFIED; A49.9 - BACTERIAL INFECTION, UNSPECIFIED Status: Acute (2) Atrial fibrillation Code(s): I48.91 - UNSPECIFIED ATRIAL FIBRILLATION Status: Acute Qualifiers: Atrial fibrillation type: paroxysmal Qualified Code(s): I48.0 - Paroxysmal atrial fibrillation (3) Closed comminuted fracture of left hip Code(s): S72.092A - OTH FRACTURE OF HEAD AND NECK OF LEFT FEMUR, INIT Status: Acute Qualifiers: Encounter type: subsequent encounter Comment: had orif on 07/11/2017 (4) Paroxysmal A-fib Code(s): I48.0 - PAROXYSMAL ATRIAL FIBRILLATION Status: Acute Comment: in NSR. per cardiology (5) HLD (hyperlipidemia) Code(s): E78.5 - HYPERLIPIDEMIA, UNSPECIFIED Status: Chronic Qualifiers: Hyperlipidemia type: unspecified (6) HTN (hypertension) Code(s): I10 - ESSENTIAL (PRIMARY) HYPERTENSION Status: Chronic Qualifiers: Hypertension type: essential hypertension - Plan cont multaq, eliquis -: cont PT/OT * .
[2017-07-19] MEDS: Dronedarone HCl 400 MG TAB PO SCH (08:55)
[2017-07-19] MEDS: Ascorbic Acid 500 mg Chewable Tablet PO SCH (08:55)
[2017-07-19] MEDS: Ferrous Sulfate 325 MG TAB PO SCH (08:55)
[2017-07-19] MEDS: Calcium Carbonate + Vit D 1 TAB PO SCH (08:55)
[2017-07-19] MEDS: Apixaban 5 MG TAB PO SCH (08:55)
[2017-07-19] MEDS: Metoprolol Tartrate 25 MG TAB PO SCH (08:56)
[2017-07-19] MEDS: Polyethylene Glycol 3350 17 GM Packet PO SCH (08:56)
[2017-07-19] MEDS: Famotidine 20 MG TAB PO SCH (08:56)
[2017-07-19] MEDS: Docusate 100 MG CAP PO SCH (08:56)
[2017-07-19] MEDS: Nitrofurantoin Monohyd/M-Cryst 100 MG CAP PO SCH (08:56)
[2017-07-19] MEDS: Furosemide 40 MG/4 ML VIAL SLOW IVP SCH (08:56)
[2017-07-19 15:33] VITALS: TEMP 98.3
[2017-07-19 16:05] VITALS: BP 152/67
--- NOTE | 2017-07-19 20:55 | DIS ---
PRIMARY CARE PROVIDER: Renard Gonzalez M.D. DATE OF ADMISSION: 07/16/2017 DATE OF DISCHARGE: 07/19/2017 DISCHARGE DISPOSITION: Discharged to [facility]. FINAL DIAGNOSES: Atrial fibrillation, chronic anticoagulation, hypertension, dyslipidemia, UTI secon marizol to Escherichia coli, post left hip ORIF on 07/11/2017. DISCHARGE MEDICATIONS: Eliquis 5 mg twice a day, Ultram 50 mg p.o. q.6 hours p.r.n., MiraLax 17 gram s in water daily, ibuprofen 600 mg p.o. q.6 hours p.r.n., ferrous sulfate 325 mg a day, Pepcid 20 mg twice a day, Multaq 400 mg twice a day, Macrobid 100 mg p.o. twice a day for 7 more days, metoprolol 25 mg p.o. b.i.d., and Lasix 40 mg a day. ALLERGIES: TALWIN and DARVOCET. CODE STATUS: FULL. HOSPITAL COURSE: The patient admitted to the hospital through [facility] to [facility]ist [facility] on 07/16/2017 with atrial fibrillation, rapid ventricular response. She was i npatient rehabilitation post-ORIF. The patient has a history of chronic atrial fibrillation. She wa s seen in consultation by Dr. Cassandra Baez. After coming to the hospital, she converted to sinus rh hm. She remained stable. He recommended a possible change to sotalol 80 mg twice a day if she had further episodes also considered to be a candidate for radiofrequency ablation in the future. Her c urrent rhythm is regular sinus rhythm. LABORATORY DATA: Hemoglobin was 9.1 to 10.3. White count was normal. APTT 37. INR 1.4. Comp meta bolic profile normal. BNP 831. Cardiac enzymes normal. TSH 1.2. The patient has declined to go back to inpatient rehabilitation. She is being transferred to [facility] for continuing PT, OT. Her orthopedic surgeon who saw her for her, it is Dr. Gerardo Metzger in her previous hospital stay, she had an ORIF on 07/11/2017. She is currently stable, doing well and being discharged for continuing PT, OT, and [facility] care. She will need to be followed up by her PCP in 1 week. She will need follow up in the future with Dr. Gerardo Metzger and follow up with her [facility] clerical support about any future changes in medications or radiofrequency ablation. At the time o f discharge, she is doing well. Her cardiorespiratory exam is normal. Her pulse is 70, blood pressu re 114/55, respirations 18.
== END 2017-07-19 15:35 | DRG 309 ==
LOC: ERS 09:08 → 2NO 13:18
PROVIDERS: ADMIT Internal Medicine; ATTEND Internal Medicine
DX: I48.0 Paroxysmal atrial fibrillation (principal); N39.0 Urinary tract infection, site not specified; I35.0 Nonrheumatic aortic (valve) stenosis; I10 Essential (primary) hypertension; B96.20 Unspecified Escherichia coli [E. coli] as the cause of diseases classified elsewhere; I48.2 Chronic atrial fibrillation; Z79.01 Long term (current) use of anticoagulants; R60.9 Edema, unspecified; R77.0 Abnormality of albumin; E78.5 Hyperlipidemia, unspecified; S72.142D Displaced intertrochanteric fracture of left femur, subsequent encounter for closed fracture with routine healing
CPT/HCPCS: 36415; 51701; 71010; 80048; 81003; 81015; 82553; 83690; 83880; 84443; 84484; 85025; 85610; 85730; 87077; 87086; 87186; 90471; 90732; 93005; 96365; 96367; 96374; 96375; A4353; G0009; G8978-GP-CL; G8979-GP-CJ; G8987-GO-CL; G8988-GO-CJ; J0360; J0696; J1160; J1885; J1940; J2405; J3010; J3475